=== PATIENT | female | born 1990 | race American Indian/Alaskan Native ===

== ENCOUNTER 2019-06-12 06:34 | Inpatient (IN) | payer MEDICAID ==
--- NOTE | 2019-06-12 08:35 | History and Physical Report ---
History of Present Illness Date of examination: 06/12/19 Chief complaint: Labor History of present illness: Pt is a 29yo BF EDC 06/20/19; EGA 38 6/7 weeks presents to L&D complaining of RUC's q 3-4 mins. She received care at [facility] since 8 weeks and co-managed by [facility] for morbid obesity. records are available and GBS is Positive. Past History Past Medical History: other (Morbid obesity) Past Surgical History: no surgical history Family/Genetic History: none Social history: no significant social history, - Obstetrical History Expected Date of Delivery: 06/20/19 Actual Gestation: 38 Week(s) 6 Day(s) : 1 Medications and Allergies Allergies Allergy/AdvReac Type Severity Reaction Status Date / Time No Known Allergies Allergy Verified 06/12/19 10:33 Home Medications Medication Instructions Recorded Confirmed Last Taken Type Ferrous Sulfate [Feosol 325 MG tab] 06/12/19 06/11/19 10:00 History 1 Review of Systems All systems: negative - Vital Signs Vital signs: Vital Signs Pulse BP 80 110/58 06/12/19 06:49 06/12/19 06:49 Temp Pulse Resp BP Pulse Ox 98.5 F 80 20 116/70 06/12/19 08:21 06/12/19 07:20 06/12/19 08:21 06/12/19 07:20 - Physical Exam Breasts: Positive: deferred Abdomen: Positive: normal appearance Genitourinary (Female): Positive: normal external genitalia Uterus: Positive: enlarged Extremities: Positive: normal - Obstetrical FHR: category 1 Uterine Contraction Monitor Mode: External Cervical Dilatation: 5 Cervical Effacement Percentage: 80 station: -2 Uterine Contraction Pattern: Regular Uterine Tone Measurement Phase: Contraction Uterine Contraction Intensity: Moderate Results Result Diagrams: 06/12/19 07:35 All other labs normal. Assessment and Plan - Patient Problems (1) 38 weeks gestation of Onset Date: 06/12/19 Current Visit: Yes Status: Acute Plan to address problem: A: IUP @ 38 6/7 weeks in labor Morbid obesity +GBS P: Admit to L&D for expectant vaginal delivery IV Ampicillin (2) Obesity Onset Date: 06/12/19 Current Visit: Yes Status: Chronic Qualifiers: Obesity type: due to excess calories Serious obesity comorbidity presence: without serious comorbidity Body mass index: BMI 50.0-59.9
[2019-06-12] MEDS ORDERED: OXYTOCIN 20 UNIT/1000ML DRIP 20 UNITS/1,000 ML BAG IV SCH ×2 (09:00→21:00)
[2019-06-12] MEDS ORDERED: OXYTOCIN DRIP 30 UNITS/500 ML BAG IV SCH ×2 (09:00)
[2019-06-12 09:06] LABS: Hematocrit 34.5 % (30.3-42.9); Hemoglobin 11.5 gm/dl (10.1-14.3); Mean Corpuscular HGB Conc 33 % (30-34); Mean Corpuscular Volume 85 fl (79-97); Platelet Count 264 K/mm3 (140-440); Red Blood Count 4.07 M/mm3 (3.65-5.03); Red Cell Distribution Width 14.4 % (13.2-15.2)
[2019-06-12] MEDS ORDERED: BUTORPHANOL 2 MG/1 ML INJ IV PRN (11:00)
[2019-06-12] MEDS ORDERED: fentaNYL 100 MCG/2 ML INJ IV PRN (11:00)
[2019-06-12] MEDS ORDERED: AMPICILLIN/NS 2 GM/100 ML 2 GM/100 ML BAG IV ONE (11:00)
[2019-06-12] MEDS ORDERED: ePHEDrine SULFATE 50 MG/1 ML INJ IV PRN ×2 (11:00→15:33)
[2019-06-12] MEDS ORDERED: LACTATED RINGERS 1,000 ML IV SCH (11:00)
[2019-06-12] MEDS ORDERED: TERBUTALINE 1 MG/1 ML INJ SUB-Q PRN (11:00)
[2019-06-12] MEDS ORDERED: PROMETHAZINE 25 MG TAB PO PRN ×2 (11:00→20:09)
[2019-06-12] MEDS ORDERED: LIDOCAINE (2%) 20 MG/1 ML VIAL 20 ML MDV INFILTRATI NR (11:00)
[2019-06-12] MEDS ORDERED: MINERAL OIL 30 ML ORAL LIQD PO PRN (11:00)
[2019-06-12] MEDS ORDERED: TERBUTALINE 1 MG/1 ML INJ IVP PRN (11:00)
[2019-06-12] MEDS ORDERED: ONDANSETRON 4 MG/2 ML INJ IV PRN ×2 (11:00→20:09)
[2019-06-12] MEDS ORDERED: AMPICILLIN/NS 1 GM/50 ML 1 GM/50 ML BAG IV SCH (15:00)
[2019-06-12] MEDS ORDERED: NALOXONE 2 MG/2 ML INJ IV PRN (15:33)
--- NOTE | 2019-06-12 15:34 | Anesthesia Consultation ---
Anesthesia Consult and Med Hx Date of service: 06/12/19 - Airway Anesthetic Teeth Evaluation: Good ROM Head & Neck: Adequate Mental/Hyoid Distance: Adequate Mallampati Class: Class II Intubation Access Assessment: Probably Good - Pulmonary Exam CTA: Yes - Cardiac Exam Cardiac Exam: RRR - Pre-Operative Health Status ASA Pre-Surgery Classification: ASA3 Proposed Anesthetic Plan: Epidural - Pulmonary Hx Asthma: No COPD: No Hx Pneumonia: No - Cardiovascular System Hx Hypertension: No - Central Nervous System Hx Seizures: No Hx Psychiatric Problems: No - Endocrine Hx Renal Disease: No Hx End Stage Renal Disease: No Hx Hypothyroidism: No Hx Hyperthyroidism: No - Hematic Hx Anemia: No Hx Sickle Cell Disease: No - Other Systems Hx Alcohol Use: No Hx Obesity: Yes
[2019-06-12] MEDS ORDERED: fentaNYL-BUPIV 2 MCG/ML-0.125% 200 MCG/100 ML BAG EPIDURAL SCH (16:00)
[2019-06-12] MEDS ORDERED: BUPIVACAINE/PF (0.25%) 2.5 MG/ML 10 ML VIAL INFILTRATI ONE (16:03)
--- NOTE | 2019-06-12 20:08 | Procedure Note ---
OB Delivery Note - Delivery Date of Delivery: 06/12/19 Surgeon: ELLE LEONARD Estimated blood loss: 200cc - Vaginal Delivery presentation: vertex Delivery position: OA Intrapartum events: PROM->1hr before delivery Delivery induction: none Delivery augmentation: rupture of membranes, pitocin Delivery monitor: external FHT, external uterine Route of delivery: Delivery placenta: spontaneous Delivery cord: 3 umbilical vessels Episiotomy: none Delivery laceration: 2nd degree (perineal) Delivery repair: vicryl Anesthesia: epidural Delivery comments: delivered OA and placed on Mom's chest for [id number] bonding and delayed cord clamping, cut by Dad - Infant A at 1 minute: 9 at 5 minutes: 9 Gender: Male (2736gms)
[2019-06-12] MEDS ORDERED: BENZOCAINE/MENTHOL 20/0.5% TOP SPRAY 56 GM TP PRN (20:09)
[2019-06-12] MEDS ORDERED: ACETAMINOPHEN 325 MG TAB PO PRN (20:09)
[2019-06-12] MEDS ORDERED: PROMETHAZINE 25 MG RECT SUPP PR PRN (20:09)
[2019-06-12] MEDS ORDERED: LANOLIN/ZINC/DIMETHICONE (LANSINOH) 7 GM TP PRN (20:09)
[2019-06-12] MEDS ORDERED: diphenhydrAMINE 25 MG CAP PO PRN (20:09)
[2019-06-12] MEDS ORDERED: MAGNESIUM HYDROXIDE (MOM) ORAL LIQD UDC PO PRN (20:09)
[2019-06-12] MEDS ORDERED: WITCH HAZEL/ GLYCERIN PAD TP PRN (20:09)
[2019-06-12] MEDS: FERROUS SULFATE 325 MG TAB PO SCH (23:55)
[2019-06-12] MEDS: HYDROcodone/ACETAMINOPHEN 5-325 MG TAB PO PRN (23:55)
[2019-06-12] MEDS: IBUPROFEN 600 MG TAB PO SCH (23:55)
[2019-06-13] MEDS: IBUPROFEN 600 MG TAB PO SCH ×2 (06:00→18:28)
[2019-06-13] MEDS: HYDROcodone/ACETAMINOPHEN 5-325 MG TAB PO PRN ×2 (06:00→15:07)
[2019-06-13 08:26] LABS: Hematocrit 31.5 % (30.3-42.9); Hemoglobin 10.7 gm/dl (10.1-14.3)
--- NOTE | 2019-06-13 09:43 | Progress Note ---
Assessment and Plan - Patient Problems (1) 38 weeks gestation of Onset Date: 06/12/19 Current Visit: Yes Status: Resolved (2) Obesity Onset Date: 06/12/19 Current Visit: Yes Status: Chronic Qualifiers: Obesity type: due to excess calories Serious obesity comorbidity presence: without serious comorbidity Body mass index: BMI 50.0-59.9 (3) (normal spontaneous vaginal delivery) Onset Date: 06/13/19 Current Visit: Yes Status: Resolved Plan to address problem: A: S/P - PPD #1 Doing well Asymptomatic anemia - stable P: May go home tomorrow. Subjective - Subjective Date of service: 06/13/19 Principal diagnosis: s/p - PPD #1 Interval history: Pt is feeling well without complaints. Bleeding improved. Patient reports: appetite normal, voiding normally, pain well controlled, flatus, ambulating normally, no dizzy ambulation, no nauseated [place]: doing well, nursing well Objective - Vital Signs Latest vital signs: Vital Signs Temp Pulse Resp BP BP Pulse Ox 06/13/19 05:31 98.2 F 89 20 95/59 98 06/12/19 23:21 99.0 F 101 H 20 125/65 98 06/12/19 22:23 105 H 93/52 06/12/19 22:08 103 H 103/58 06/12/19 21:53 108 H 99/57 06/12/19 21:38 105 H 107/64 06/12/19 21:23 103 H 105/66 06/12/19 21:08 100 H 100/56 06/12/19 20:53 102 H 102/57 06/12/19 20:38 106 H 101/57 06/12/19 20:23 107 H 107/50 06/12/19 20:19 105/59 06/12/19 20:08 104 H 108/51 06/12/19 19:53 111 H 111/58 06/12/19 19:37 109 H 100 06/12/19 19:30 115 H 100 06/12/19 19:25 113 H 100 06/12/19 19:23 110 H 120/71 06/12/19 19:20 105 H 100 06/12/19 19:15 110 H 100 06/12/19 19:10 111 H 100 06/12/19 19:09 93 H 117/67 09/26/19 19:05 103 H 100 06/12/19 19:00 104 H 100 06/12/19 18:55 102 H 100 06/12/19 18:53 99 H 125/60 06/12/19 18:50 92 H 100 06/12/19 18:45 101 H 100 06/12/19 18:40 103 H 99 06/12/19 18:39 91 H 132/66 06/12/19 18:35 88 100 06/12/19 18:30 97 H 100 06/12/19 18:25 95 H 100 06/12/19 18:23 96 H 123/66 06/12/19 18:20 92 H 100 06/12/19 18:15 98 H 100 06/12/19 18:10 89 100 06/12/19 18:08 96 H 118/67 06/12/19 18:05 83 100 06/12/19 17:53 97 H 120/84 06/12/19 17:51 96 H 100 06/12/19 17:46 95 H 100 06/12/19 17:41 89 99 06/12/19 17:38 89 123/81 06/12/19 17:36 92 H 100 06/12/19 17:31 100 H 99 06/12/19 17:30 20 06/12/19 17:26 96 H 100 06/12/19 17:23 90 124/87 06/12/19 17:20 105 H 100 06/12/19 17:15 94 H 100 06/12/19 17:10 95 H 100 06/12/19 17:08 93 H 124/59 06/12/19 17:05 86 100 06/12/19 17:00 82 100 06/12/19 16:55 92 H 100 06/12/19 16:54 90 125/56 06/12/19 16:50 84 100 06/12/19 16:45 88 100 06/12/19 16:40 92 H 100 06/12/19 16:38 84 125/58 06/12/19 16:35 84 100 06/12/19 16:30 98.1 F 84 16 100 06/12/19 16:25 79 100 06/12/19 16:23 87 113/56 06/12/19 16:20 83 99 06/12/19 16:15 86 99 06/12/19 16:10 85 100 06/12/19 16:08 85 119/72 06/12/19 16:05 84 103/58 99 06/12/19 16:01 94 H 127/69 06/12/19 16:00 83 100 06/12/19 15:58 90 118/64 06/12/19 15:55 83 115/62 100 06/12/19 15:53 91 H 128/76 06/12/19 15:50 89 100 06/12/19 15:49 86 110/59 06/12/19 15:47 75 79 L 06/12/19 15:46 80 108/57 06/12/19 15:45 87 100 06/12/19 15:43 88 113/62 06/12/19 15:40 80 109/56 100 06/12/19 15:37 86 116/56 06/12/19 15:35 83 112/52 100 06/12/19 15:29 98 H 123/64 06/12/19 15:28 70 88 06/12/19 15:26 88 98 06/12/19 15:25 86 116/58 06/12/19 15:23 97 H 109/62 06/12/19 15:21 108 H 100 06/12/19 15:19 83 119/55 77 L 06/12/19 15:16 90 100 06/12/19 15:11 81 100 06/12/19 15:06 90 100 06/12/19 15:01 79 100 06/12/19 14:58 74 127/59 06/12/19 14:56 78 99 06/12/19 14:54 98.2 F 74 16 127/59 100 06/12/19 14:51 78 99 06/12/19 14:46 77 99 06/12/19 14:41 76 99 06/12/19 14:36 70 99 06/12/19 14:31 71 99 06/12/19 14:27 75 113/60 06/12/19 14:26 74 100 06/12/19 14:23 74 117/72 06/12/19 14:21 82 100 06/12/19 14:07 76 99 06/12/19 14:02 82 98 06/12/19 13:57 79 99 06/12/19 13:55 75 114/70 06/12/19 13:52 75 99 06/12/19 13:47 81 99 06/12/19 13:42 78 100 06/12/19 13:37 82 100 06/12/19 13:33 82 91 06/12/19 13:31 77 113/66 06/12/19 13:30 73 99 06/12/19 12:37 83 103/61 06/12/19 11:10 83 98 06/12/19 11:05 98 F 83 18 116/62 98 Intake and Output 06/12/19 06/13/19 06/13/19 22:59 06:59 14:59 Intake Total 36.4 240 Output Total 700 600 Balance -663.6 -360 Intake: IV 36.4 PITOCin/NS 30 UNIT/500ML 36.4 30 units In 500 ml @ 1 MILLIUNITS/MIN 1 mls/hr IV TITR RACHEL Rx#:[id number] Oral 240 Output: Urine 700 600 Indwelling Catheter 300 Void 400 600 Other: Total, Intake Amount 240 Total, Output Amount 300 600 # Voids Void 1 Estimated Blood Loss 200 - Exam Breasts: Present: deferred Abdomen: Present: normal appearance, soft Uterus: Present: normal, firm, fundal height below umbilicus Extremities: Present: normal - Labs Labs: Laboratory Tests 06/12/19 06/12/19 06/12/19 07:35 07:35 07:35 WBC 17.4 H RBC 4.07 Hgb 11.5 Hct 34.5 MCV 85 MCH 28 MCHC 33 RDW 14.4 Plt Count 264 RPR Nonreactive Blood Type A POSITIVE Antibody Screen Negative 06/13/19 08:08 WBC RBC Hgb 10.7 Hct 31.5 MCV MCH MCHC RDW Plt Count RPR Blood Type Antibody Screen
[2019-06-13] MEDS: PRENATAL VIT27-FE FUMARATE-FOLIC ACID VIT TAB PO SCH (15:10)
[2019-06-13] MEDS: FERROUS SULFATE 325 MG TAB PO SCH ×2 (15:10→22:14)
[2019-06-13] MEDS ORDERED: MEASLES, MUMPS & RUBELLA 12,500 UNIT/0.5 ML VACCINE SUB-Q ONE (20:09)
[2019-06-13] MEDS ORDERED: TETANUS,DIPH,PERTUSS(ACELL) VACCINE 0.5 ML SYRINGE IM ONE (20:09)
[2019-06-14] MEDS: IBUPROFEN 600 MG TAB PO SCH ×2 (00:01→05:50)
[2019-06-14] MEDS: PRENATAL VIT27-FE FUMARATE-FOLIC ACID VIT TAB PO SCH (08:31)
[2019-06-14] MEDS: FERROUS SULFATE 325 MG TAB PO SCH (08:31)
--- NOTE | 2019-06-14 10:25 | Discharge Summary ---
Providers - Providers Date of Admission: 06/12/19 08:35 Date of discharge: 06/14/19 Attending physician: ELLE LEONARD Primary care physician: ELLE LEONARD Hospitalization Reason for admission: active labor, IUP at term Delivery: Episiotomy: none Laceration: 2nd degree Incision: normal Other procedures: none complications: none Discharge diagnosis: IUP at term delivered baby: male Hospital course: Unremarkable. Condition at discharge: Good Disposition: DC-01 TO HOME OR SELFCARE - Discharge Diagnoses (1) 38 weeks gestation of Status: Resolved (2) Obesity Status: Chronic Qualifiers: Obesity type: due to excess calories Serious obesity comorbidity presence: without serious comorbidity Body mass index: BMI 50.0-59.9 (3) (normal spontaneous vaginal delivery) Status: Resolved Plan - Discharge Medications Prescriptions: Ferrous Sulfate [Feosol 325 MG tab] 325 mg PO BID #60 tablet Ibuprofen [Motrin 600 MG tab] 600 mg PO Q6H #30 tablet Vit-Fe Fumar-FA [ Vitamin] 1 each PO QDAY #30 tablet - Provider Discharge Summary Activity: routine, no sex for 6 weeks, no heavy lifting 4 weeks, no strenuous exercise Diet: routine Instructions: routine Additional instructions: [] Smoking cessation referral if applicable(refer to patient education folder for contact #) [] Refer to [facility]'s [facility] Booklet Call your doctor immediately for: * Fever > 100.5 * Heavy vaginal bleeding ( >1 pad per hour) * Severe persistent headache * Shortness of breath * Reddened, hot, painful area to leg or breast * Drainage or odor from incision. * Keep incision clean and dry at all times and follow doctor's instructions regarding bathing/showering - Follow up plan Follow up: ELLE LEONARD MD [Primary Care Provider] - 6 Weeks ROCAEL MEMBRENO CNM [Advanced Practice Nurse] - 6 Weeks
[2019-06-14] MEDS: HYDROcodone/ACETAMINOPHEN 5-325 MG TAB PO PRN ×2 (10:29→16:52)
[2019-06-14 18:15] VITALS: BP 112/60
== END 2019-06-14 18:38 | disposition home or self-care (01) | DRG 775 ==
LOC: TRG 06:34 → LD 07:37 → TRG 11:12 → OB 23:10
PROVIDERS: ADMIT Obstetrics & Gynecology; ATTEND Obstetrics & Gynecology
PROC: 10E0XZZ Delivery of Products of Conception, External Approach (ICD-10-PCS; principal; 2019-06-12)
PROC: 0KQM0ZZ Repair Perineum Muscle, Open Approach (ICD-10-PCS; 2019-06-12)
PROC: 3E0R3BZ Introduction of Anesthetic Agent into Spinal Canal, Percutaneous Approach (ICD-10-PCS; 2019-06-12)
PROC: 00HU33Z Insertion of Infusion Device into Spinal Canal, Percutaneous Approach (ICD-10-PCS; 2019-06-12)
PROC: 3E0234Z Introduction of Serum, Toxoid and Vaccine into Muscle, Percutaneous Approach (ICD-10-PCS; 2019-06-13)
DX: O99.824 Streptococcus B carrier state complicating childbirth (principal); O99.214 Obesity complicating childbirth; E66.01 Morbid (severe) obesity due to excess calories; O42.92 Full-term premature rupture of membranes, unspecified as to length of time between rupture and onset of labor; O70.1 Second degree perineal laceration during delivery; Z3A.38 38 weeks gestation of pregnancy; Z37.0 Single live birth; Z23 Encounter for immunization; O90.81 Anemia of the puerperium
CPT/HCPCS: 36415; 85014; 85018; 85027; 86592; 86850; 86900; 86901; G0378; A6250; J0290; J2590; J3010; J7120